=== PATIENT | male | born 2005 | race Two or more races ===

== ENCOUNTER 2024-01-21 13:05 | Emergency (ER) | payer OTHER ==
[~2024-01-21] VITALS: Ht 180.3 cm; Wt 78.0 kg
[2024-01-21 14:31] VITALS: BP 128/86; PULSE 71; RESP 15; TEMP 98.1
[2024-01-21 14:36] LABS: COVID AG,FIA SOURCE NASAL SWAB
[2024-01-21 14:58] LABS: SARS-COV2 (COVID) ANTIGEN,FIA Negative (Negative)
== END 2024-01-21 16:43 | disposition home or self-care (01) ==
LOC: EMS 13:08
DX: R45.851 Suicidal ideations (principal); F03.90 Unspecified dementia, unspecified severity, without behavioral disturbance, psychotic disturbance, mood disturbance, and anxiety; Z20.822 Contact with and (suspected) exposure to COVID-19
CPT/HCPCS: 99283; 99285